=== PATIENT | female | born 1980 | race Caucasian/White ===

== ENCOUNTER 2018-04-23 20:35 | Emergency (ER) | payer MEDICAID ==
[~2018-04-23] VITALS: Ht 165.1 cm; Wt 61.3 kg
[~2018-04-23 20:35] MED LIST: FAMO-1 PO; ONDA4TAB59 PO; ONDA4TAB6 PO; ONDA8TAB9 PO; PROC25SU30 PO
[2018-04-23] MEDS ORDERED: ondansetron 4mg rapidly disintigrating tab PO STA (21:17)
[2018-04-23] MEDS ORDERED: normal saline 1000ML IV soln IVB ONE (21:55)
[2018-04-23] MEDS ORDERED: ondansetron/PF 4mg/2ml inj IV ONE ×2 (21:55→23:05)
[2018-04-23 22:04] LABS: BASOPHILS % (AUTO) 0.1 % (0-1); EOSINOPHILS % (AUTO) 0.2 % (0-6); HEMOGLOBIN 14.1 g/dl (12.0-16.0); LYMPHOCYTES # (AUTO) 2.1 X10'3 (1.1-4.8); LYMPHOCYTES % (AUTO) 19.6 % (21-51); MEAN CORPUSCULAR HEMOGLOBIN 29.7 PG (27.0-31.0); MEAN CORPUSCULAR HGB CONC 33.6 % (33.0-36.5); MEAN CORPUSCULAR VOLUME 88.4 FL (78-98); MEAN PLATELET VOLUME 7.3 FL (7.4-10.4); MONOCYTES # (AUTO) 0.7 X10'3 (0-0.9); MONOCYTES % (AUTO) 6.8 % (2-12); NEUTROPHILS % (AUTO) 73.3 % (42-75); PLATELET COUNT 209 X10'3 (140-440); RED BLOOD COUNT 4.75 X10'6 (4.20-5.60); RED CELL DISTRIBUTION WIDTH 13.5 % (11.5-14.5); WHITE BLOOD COUNT 10.9 X10'3 (4.5-11.0)
[2018-04-23 22:15] LABS: ALANINE AMINOTRANSFERASE 25 U/L (12-78); ALBUMIN 4.3 G/DL (3.4-5.0); ALBUMIN/GLOBULIN RATIO 1.2 (1.1-1.5); ALKALINE PHOSPHATASE 96 IU/L (46-116); ANION GAP 14 (8-16); ASPARTATE AMINO TRANSFERASE 20 U/L (10-37); BILIRUBIN,TOTAL 0.5 MG/DL (0.1-1.0); BLOOD UREA NITROGEN 14 MG/DL (7-18); BUN/CREATININE RATIO 18.9 (6.6-38.0); CALCIUM 9.8 MG/DL (8.5-10.1); CHLORIDE 101 MMOL/L (99-107); CREATININE 0.74 MG/DL (0.40-0.90); GLUCOSE 99 MG/DL (70-104); LIPASE 93 U/L (73-393); POTASSIUM 3.4 MMOL/L (3.5-5.1); SODIUM 140 MMOL/L (135-145); TOTAL CARBON DIOXIDE 24.9 MMOL/L (24-32); TOTAL PROTEIN 7.8 G/DL (6.4-8.2); eGFR 88 ML/MIN
[2018-04-23 22:16] LABS: PROTHROMBIN TIME 10.5 SECONDS (9.0-12.0)
[2018-04-23 23:03] VITALS: BP 112/70
[2018-04-23] MEDS ORDERED: ONDA4TAB9 SL (23:40)
[2018-04-24 00:37] LABS: CLARITY,URINE CLEAR (Clear); COLOR,URINE YELLOW (Yellow); GLUCOSE, URINE NEGATIVE (Neg); KETONES,URINE 15 mg/dl (Neg); LEUKOCYTE ESTERASE ,URINE NEGATIVE (Neg); NITRITES, URINE NEGATIVE (Neg); OCCULT BLOOD,URINE NEGATIVE (Neg); PH,URINE 6.5 (4.8-8.0); PROTEIN,URINE NEGATIVE (Neg)
[2018-04-24 00:39] LABS: UA COLLECTION TYPE NON-SPECIFIED; URINE HCG NEGATIVE (NEG)
== END 2018-04-23 23:51 | disposition home or self-care (01) ==
LOC: ER 20:35
DX: K30 Functional dyspepsia (principal); R11.10 Vomiting, unspecified; F12.90 Cannabis use, unspecified, uncomplicated; Z87.442 Personal history of urinary calculi; Z79.899 Other long term (current) drug therapy; Z88.8 Allergy status to other drugs, medicaments and biological substances; Z88.1 Allergy status to other antibiotic agents
CPT/HCPCS: 36415; 80053; 81003; 81025; 83690; 85025; 85610; 96361; 96374; 96376; 99284; J2405; J7030

== ENCOUNTER 2018-12-26 01:09 | Emergency (ER) | payer MEDICAID ==
[~2018-12-26] VITALS: Ht 165.1 cm; Wt 54.6 kg
[~2018-12-26 01:09] MED LIST changes: +ONDA8TAB6 PO
[2018-12-26 01:13] VITALS: BP 113/49
--- NOTE | 2018-12-26 01:50 | NUR ---
discussed pt's n/v with KELSI Souza;new orders received for Zofran ODT 8mg.
[2018-12-26] MEDS ORDERED: ondansetron 4mg rapidly disintigrating tab PO ONE (01:55)
[2018-12-26] MEDS ORDERED: proCHLORperazine 10 MG/2 ml inj IV ONE (02:50)
[2018-12-26] MEDS ORDERED: magnesium 2GM in 50ml NS 50 ML IV ONE (03:00)
[2018-12-26] MEDS ORDERED: ESOMEPRAZOLE 40 MG VIAL IV ONE (03:00)
[2018-12-26] MEDS ORDERED: normal saline 1000ML IV soln IVB ONE (03:00)
[2018-12-26] MEDS ORDERED: D5-1/2NS w/20 mEq potassium per 1000ml IV ONE (03:00)
[2018-12-26] MEDS ORDERED: ONDA4TAB6 PO (03:00)
[2018-12-26] MEDS ORDERED: pantoprazole 40 MG vial IV ONE (03:00)
[2018-12-26] MEDS ORDERED: ESOM20CA PO (03:00)
== END 2018-12-26 03:29 | disposition home or self-care (01) ==
LOC: ER 01:09
DX: G43.A0 Cyclical vomiting, in migraine, not intractable (principal); F12.90 Cannabis use, unspecified, uncomplicated; Z87.442 Personal history of urinary calculi; Z98.890 Other specified postprocedural states; Z88.1 Allergy status to other antibiotic agents; Z88.6 Allergy status to analgesic agent; Z88.8 Allergy status to other drugs, medicaments and biological substances; Z79.899 Other long term (current) drug therapy
CPT/HCPCS: 96374; 99283; J0780; J2405; J3475; J3480

== ENCOUNTER 2019-01-02 06:04 | Emergency (ER) | payer MEDICAID ==
[~2019-01-02] VITALS: Ht 165.1 cm; Wt 56.8 kg
[~2019-01-02 06:04] MED LIST changes: +ESOM20CA PO
[2019-01-02 06:29] LABS: URINE HCG NEGATIVE (NEG)
[2019-01-02 06:30] LABS: CLARITY,URINE CLEAR (Clear); COLOR,URINE YELLOW (Yellow); GLUCOSE, URINE NEGATIVE (Neg); KETONES,URINE NEGATIVE (Neg); LEUKOCYTE ESTERASE ,URINE NEGATIVE (Neg); NITRITES, URINE NEGATIVE (Neg); OCCULT BLOOD,URINE NEGATIVE (Neg); PROTEIN,URINE TRACE mg/dl (Neg); UROBILINOGEN,URINE 0.2 E.U/dL (0.2-1.0)
[2019-01-02 06:35] LABS: UA COLLECTION TYPE CLN CATCH MIDSTREAM
[2019-01-02] MEDS ORDERED: ondansetron/PF 4mg/2ml inj IV ONE (06:35)
[2019-01-02] MEDS ORDERED: normal saline 1000ML IV soln IVB ONE (06:35)
[2019-01-02 06:36] LABS: BACTERIA,URINE 1+ /HPF (Neg); MUCUS STRANDS FEW /LPF (Neg); RBC,URINE NONE SEEN /HPF (0-2); SQUAMOUS EPITHELIAL CELL,UR MANY /LPF (FEW); WBC,URINE NONE SEEN /HPF (0-4)
[2019-01-02 06:41] LABS: BASOPHILS % (AUTO) 0.3 % (0-1); EOSINOPHILS % (AUTO) 0.4 % (0-6); HEMATOCRIT 41.2 % (35.0-45.0); HEMOGLOBIN 13.8 g/dl (12.0-16.0); LYMPHOCYTES # (AUTO) 1.6 X10'3 (1.1-4.8); MEAN CORPUSCULAR HEMOGLOBIN 29.8 PG (27.0-31.0); MEAN CORPUSCULAR HGB CONC 33.5 g/dL (33.0-36.5); MEAN CORPUSCULAR VOLUME 88.9 FL (78-98); MEAN PLATELET VOLUME 7.5 FL (7.4-10.4); MONOCYTES # (AUTO) 0.5 X10'3 (0-0.9); MONOCYTES % (AUTO) 6.5 % (2-12); NEUTROPHILS # (AUTO) 5.4 X10'3 (1.8-7.7); NEUTROPHILS % (AUTO) 71.8 % (42-75); PLATELET COUNT 188 X10'3 (140-440); RED BLOOD COUNT 4.64 X10'6 (4.20-5.60); RED CELL DISTRIBUTION WIDTH 13.4 % (11.5-14.5); WHITE BLOOD COUNT 7.5 X10'3 (4.5-11.0)
[2019-01-02] MEDS ORDERED: haloperidol lactate 5mg/ml inj IM ONE (06:55)
[2019-01-02 06:58] LABS: ALANINE AMINOTRANSFERASE 21 U/L (12-78); ALBUMIN/GLOBULIN RATIO 1.3 (1.1-1.5); ALKALINE PHOSPHATASE 54 IU/L (46-116); ANION GAP 9 (8-16); ASPARTATE AMINO TRANSFERASE 14 U/L (10-37); BILIRUBIN,TOTAL 0.3 MG/DL (0.1-1.0); BLOOD UREA NITROGEN 12 MG/DL (7-18); BUN/CREATININE RATIO 16.2 (6.6-38.0); CALCIUM 8.5 MG/DL (8.5-10.1); CHLORIDE 106 MMOL/L (99-107); CREATININE 0.74 MG/DL (0.40-0.90); GLUCOSE 131 MG/DL (70-104); LIPASE 111 U/L (73-393); POTASSIUM 3.4 MMOL/L (3.5-5.1); SODIUM 141 MMOL/L (135-145); TOTAL CARBON DIOXIDE 25.7 MMOL/L (24-32); TOTAL PROTEIN 7.2 G/DL (6.4-8.2); eGFR 88 ML/MIN
[2019-01-02] MEDS ORDERED: ONDA4TAB12 PO (07:39)
[2019-01-02 07:50] VITALS: BP 129/67
== END 2019-01-02 07:52 | disposition home or self-care (01) ==
LOC: ER 06:04
DX: G43.A0 Cyclical vomiting, in migraine, not intractable (principal); F12.90 Cannabis use, unspecified, uncomplicated; F17.200 Nicotine dependence, unspecified, uncomplicated; Z87.442 Personal history of urinary calculi; Z88.1 Allergy status to other antibiotic agents; Z79.899 Other long term (current) drug therapy
CPT/HCPCS: 36415; 80053; 81001; 81025; 83690; 85025; 85610; 96372; 96374; 99284; J1630; J2405; J7030

== ENCOUNTER 2019-01-02 19:24 | Emergency (ER) | payer MEDICAID ==
[~2019-01-02] VITALS: Ht 165.1 cm; Wt 56.0 kg
[~2019-01-02 19:24] MED LIST changes: +ONDA4TAB12 PO
[2019-01-02 19:35] VITALS: BP 129/70
[2019-01-02] MEDS ORDERED: ondansetron 4mg rapidly disintigrating tab PO ONE (20:50)
[2019-01-02] MEDS ORDERED: diphenhydrAMINE 25mg capsule PO ONE (20:50)
== END 2019-01-02 21:31 | disposition home or self-care (01) ==
LOC: ER 19:25
DX: R11.2 Nausea with vomiting, unspecified (principal); F12.90 Cannabis use, unspecified, uncomplicated; Z87.442 Personal history of urinary calculi; Z98.890 Other specified postprocedural states; Z79.899 Other long term (current) drug therapy; Z88.8 Allergy status to other drugs, medicaments and biological substances; Z88.1 Allergy status to other antibiotic agents
CPT/HCPCS: 99283; J2405; Q0163

== ENCOUNTER 2019-01-15 06:55 | Emergency (ER) | payer MEDICAID ==
[~2019-01-15] VITALS: Ht 165.1 cm; Wt 56.8 kg
[2019-01-15] MEDS ORDERED: haloperidol lactate 5mg/ml inj IM ONE (07:10)
[2019-01-15] MEDS ORDERED: morphine 4 MG/ML inj SYRINge IV PRN (07:10)
[2019-01-15] MEDS ORDERED: normal saline 1000ML IV soln IVB ONE (07:10)
[2019-01-15] MEDS ORDERED: proCHLORperazine 10 MG/2 ml inj IV ONE (07:40)
[2019-01-15] MEDS ORDERED: ondansetron/PF 4mg/2ml inj IV STA (07:44)
[2019-01-15] MEDS ORDERED: ondansetron/PF 4mg/2ml inj IV ONE (08:00)
[2019-01-15 08:05] LABS: BASOPHILS % (AUTO) 0.3 % (0-1); EOSINOPHILS % (AUTO) 0 % (0-6); HEMATOCRIT 42.3 % (35.0-45.0); HEMOGLOBIN 14.3 g/dl (12.0-16.0); LYMPHOCYTES # (AUTO) 1.4 X10'3 (1.1-4.8); LYMPHOCYTES % (AUTO) 13.5 % (21-51); MEAN CORPUSCULAR HEMOGLOBIN 29.8 PG (27.0-31.0); MEAN CORPUSCULAR HGB CONC 33.8 g/dL (33.0-36.5); MEAN CORPUSCULAR VOLUME 88.3 FL (78-98); MONOCYTES # (AUTO) 0.6 X10'3 (0-0.9); MONOCYTES % (AUTO) 5.5 % (2-12); NEUTROPHILS % (AUTO) 80.7 % (42-75); PLATELET COUNT 204 X10'3 (140-440); RED BLOOD COUNT 4.79 X10'6 (4.20-5.60); RED CELL DISTRIBUTION WIDTH 13.8 % (11.5-14.5)
[2019-01-15 08:11] LABS: ALANINE AMINOTRANSFERASE 19 U/L (12-78); ALBUMIN 4.2 G/DL (3.4-5.0); ALBUMIN/GLOBULIN RATIO 1.3 (1.1-1.5); ALKALINE PHOSPHATASE 59 IU/L (46-116); ANION GAP 9 (8-16); ASPARTATE AMINO TRANSFERASE 15 U/L (10-37); BILIRUBIN,TOTAL 0.4 MG/DL (0.1-1.0); BLOOD UREA NITROGEN 10 MG/DL (7-18); BUN/CREATININE RATIO 14.1 (6.6-38.0); CHLORIDE 108 MMOL/L (99-107); CREATININE 0.71 MG/DL (0.40-0.90); GLUCOSE 145 MG/DL (70-104); LIPASE 116 U/L (73-393); POTASSIUM 3.5 MMOL/L (3.5-5.1); SODIUM 143 MMOL/L (135-145); TOTAL CARBON DIOXIDE 26.2 MMOL/L (24-32); TOTAL PROTEIN 7.4 G/DL (6.4-8.2); eGFR > 90 ML/MIN
[2019-01-15 08:24] LABS: CLARITY,URINE CLOUDY (Clear); COLOR,URINE YELLOW (Yellow); GLUCOSE, URINE NEGATIVE (Neg); KETONES,URINE TRACE mg/dl (Neg); LEUKOCYTE ESTERASE ,URINE NEGATIVE (Neg); NITRITES, URINE NEGATIVE (Neg); OCCULT BLOOD,URINE NEGATIVE (Neg); PROTEIN,URINE TRACE mg/dl (Neg); UROBILINOGEN,URINE 0.2 E.U/dL (0.2-1.0)
[2019-01-15 08:26] LABS: UA COLLECTION TYPE CLN CATCH MIDSTREAM; URINE HCG NEGATIVE (NEG)
[2019-01-15 08:39] LABS: BACTERIA,URINE 3+ /HPF (Neg); MUCUS STRANDS MANY /LPF (Neg); RBC,URINE NONE SEEN /HPF (0-2); SQUAMOUS EPITHELIAL CELL,UR MANY /LPF (FEW); WBC,URINE 0-4 /HPF (0-4)
[2019-01-15] MEDS ORDERED: diphenhydrAMINE 50 mg/ml inj IV ONE (08:40)
[2019-01-15] MEDS ORDERED: metoclopramide 5 mg/ml inj IV ONE (08:40)
[2019-01-15 09:09] VITALS: BP 130/84
== END 2019-01-15 09:12 | disposition home or self-care (01) ==
LOC: ER 06:56
DX: R11.2 Nausea with vomiting, unspecified (principal); F12.90 Cannabis use, unspecified, uncomplicated; F17.200 Nicotine dependence, unspecified, uncomplicated; Z88.1 Allergy status to other antibiotic agents; Z88.8 Allergy status to other drugs, medicaments and biological substances; Z79.899 Other long term (current) drug therapy; Z87.442 Personal history of urinary calculi; Z87.440 Personal history of urinary (tract) infections; Z98.82 Breast implant status
CPT/HCPCS: 36415; 80053; 81001; 81025; 83690; 85025; 96361; 96374; 96375; 99283; J1200; J2405; J2765; J7030

== ENCOUNTER 2019-02-10 03:23 | Emergency (ER) | payer MEDICAID ==
[~2019-02-10] VITALS: Ht 165.1 cm; Wt 125.0 kg
[2019-02-10 03:37] VITALS: BP 115/63
[2019-02-10] MEDS ORDERED: ondansetron/PF 4mg/2ml inj IV ONE (03:45)
[2019-02-10] MEDS ORDERED: metoclopramide 5 mg/ml inj IV ONE (03:45)
[2019-02-10] MEDS ORDERED: diphenhydrAMINE 50 mg/ml inj IV ONE (03:45)
[2019-02-10] MEDS ORDERED: normal saline 1000ml 1,000 ML IV ONE (03:45)
[2019-02-10] MEDS ORDERED: ONDA8TAB6 PO (03:54)
[2019-02-10] MEDS ORDERED: famotidine/PF 10 mg/ml inj IV ONE (03:55)
[2019-02-10] MEDS ORDERED: mag hydrox/Alum hydrox/simeth 30ml oral suspension PO ONE (03:55)
== END 2019-02-10 04:36 | disposition home or self-care (01) ==
LOC: ER 03:23
DX: G43.A0 Cyclical vomiting, in migraine, not intractable (principal); R19.7 Diarrhea, unspecified; F12.90 Cannabis use, unspecified, uncomplicated; Z87.442 Personal history of urinary calculi; Z98.890 Other specified postprocedural states; Z88.8 Allergy status to other drugs, medicaments and biological substances; Z88.6 Allergy status to analgesic agent; Z88.1 Allergy status to other antibiotic agents; Z79.899 Other long term (current) drug therapy
CPT/HCPCS: 96374; 96375; 99283; J1200; J2405; J2765; J3490; J7030

== ENCOUNTER 2019-02-10 05:41 | Emergency (ER) | payer MEDICAID ==
[~2019-02-10] VITALS: Ht 165.1 cm; Wt 56.8 kg
[2019-02-10] MEDS ORDERED: metoclopramide 5 mg/ml inj IV ONE (06:35)
[2019-02-10] MEDS ORDERED: normal saline 1000ML IV soln IVB ONE (06:35)
[2019-02-10 07:03] VITALS: BP 128/70
== END 2019-02-10 07:34 | disposition home or self-care (01) ==
LOC: ER 05:43
DX: G43.A0 Cyclical vomiting, in migraine, not intractable (principal); F12.90 Cannabis use, unspecified, uncomplicated; Z87.442 Personal history of urinary calculi; Z88.1 Allergy status to other antibiotic agents; Z88.5 Allergy status to narcotic agent; Z79.899 Other long term (current) drug therapy
CPT/HCPCS: 96374; 99283; J2765; J7030; 96361

== ENCOUNTER 2019-02-13 03:30 | Emergency (ER) | payer MEDICAID ==
[~2019-02-13] VITALS: Ht 165.1 cm; Wt 56.8 kg
[2019-02-13 03:37] VITALS: BP 128/72
[2019-02-13] MEDS ORDERED: normal saline 1000ML IV soln IVB ONE (03:55)
[2019-02-13] MEDS ORDERED: metoclopramide 5 mg/ml inj IV ONE (03:55)
[2019-02-13] MEDS ORDERED: ondansetron/PF 4mg/2ml inj IV ONE (03:55)
[2019-02-13] MEDS ORDERED: ONDA4TAB6 PO (04:50)
== END 2019-02-13 05:03 | disposition home or self-care (01) ==
LOC: ER 03:31
DX: G43.A0 Cyclical vomiting, in migraine, not intractable (principal); F12.90 Cannabis use, unspecified, uncomplicated; Z87.440 Personal history of urinary (tract) infections; Z87.442 Personal history of urinary calculi; Z88.1 Allergy status to other antibiotic agents; Z88.6 Allergy status to analgesic agent; Z79.899 Other long term (current) drug therapy
CPT/HCPCS: 96374; 96375; 99283; J2405; J2765; J7030

== ENCOUNTER 2019-02-26 02:28 | Emergency (ER) | payer MEDICAID ==
[~2019-02-26] VITALS: Ht 165.1 cm; Wt 56.8 kg
[2019-02-26] MEDS ORDERED: ondansetron/PF 4mg/2ml inj IV ONE (03:30)
[2019-02-26] MEDS ORDERED: metoclopramide 5 mg/ml inj IV ONE (03:30)
[2019-02-26] MEDS ORDERED: normal saline 1000ml 1,000 ML IV ONE (03:30)
--- NOTE | 2019-02-26 03:58 | NUR ---
Patient walking outside of room, moaning, saying that she is going to throw up, that "she can't take it anymore" and that her "body is shutting down" Patients vital are stable, no retching or vomiting at this time. Patient admits to "taking one hit" of marijuana tonight. Medications administered per MD order.
[2019-02-26 04:15] VITALS: BP 128/68
[2019-02-26] MEDS ORDERED: ONDA8TAB6 PO (05:28)
[2019-02-26] MEDS ORDERED: PROM25SU46 RC (05:28)
== END 2019-02-26 04:18 | disposition home or self-care (01) ==
LOC: ER 02:28
DX: G43.A0 Cyclical vomiting, in migraine, not intractable (principal); R10.84 Generalized abdominal pain; F12.90 Cannabis use, unspecified, uncomplicated; Z87.442 Personal history of urinary calculi; Z98.890 Other specified postprocedural states; Z88.6 Allergy status to analgesic agent; Z88.1 Allergy status to other antibiotic agents; Z88.8 Allergy status to other drugs, medicaments and biological substances; Z79.899 Other long term (current) drug therapy
CPT/HCPCS: 96361; 96374; 96375; 99283; J2405; J2765; J7030

== ENCOUNTER 2019-02-26 04:49 | Emergency (ER) | payer MEDICAID ==
[~2019-02-26] VITALS: Ht 165.1 cm; Wt 56.8 kg
[2019-02-26 04:59] VITALS: BP 163/109
--- NOTE | 2019-02-26 05:05 | NUR ---
REFUSES EDUCATION ABOUT MARIJUANA
--- NOTE | 2019-02-26 05:07 | NUR ---
pt states she is working on getting a psychiatrist but something about insurance. She says she will not take haldol or ativan, that makes her anxious. She is prancing around the room and will not stop moving. She keeps saying "help" "get me the doctor like right now" I asked her about anxiety and she said "this isn't anxiety" I stated "but look how you are, you will not stop moving and you are anxious." She said "No,....its not that, get me help."
[2019-02-26] MEDS ORDERED: diphenhydrAMINE 25mg capsule PO ONE (05:20)
[2019-02-26] MEDS ORDERED: proCHLORperazine 10 MG/2 ml inj IM ONE (05:20)
[2019-02-26] MEDS ORDERED: proMETHazine 25mg rectal suppository RC ONE (05:25)
[2019-02-26] MEDS ORDERED: PROM25SU46 RC (05:28)
[2019-02-26] MEDS ORDERED: ONDA8TAB6 PO (05:28)
--- NOTE | 2019-02-26 05:30 | NUR ---
pt seen in the hallway and she said she was leaving.
== END 2019-02-26 05:32 | disposition left against medical advice (07) ==
LOC: ER 04:50
DX: G43.A0 Cyclical vomiting, in migraine, not intractable (principal); R10.84 Generalized abdominal pain; F12.90 Cannabis use, unspecified, uncomplicated; Z87.442 Personal history of urinary calculi; Z98.890 Other specified postprocedural states; Z88.1 Allergy status to other antibiotic agents; Z88.6 Allergy status to analgesic agent; Z88.8 Allergy status to other drugs, medicaments and biological substances; Z79.899 Other long term (current) drug therapy
CPT/HCPCS: 99283

== ENCOUNTER 2019-02-26 23:00 | Emergency (ER) | payer MEDICAID ==
[~2019-02-26] VITALS: Ht 165.1 cm; Wt 56.8 kg
[~2019-02-26 23:00] MED LIST changes: +PROM25SU46 RC
--- NOTE | 2019-02-27 01:17 | NUR ---
PT REFUSES TO WEAR VS MONITORING EQUIPMENT AND STATES "I JUST NEED THIS OFF OF ME. THE SOONER WE GET THROUGH THIS THE BETTER. I'VE BEEN HERE 3 TIMES TODAY AND A FEW TIMES LAST NIGHT."
--- NOTE | 2019-02-27 01:32 | NUR ---
PT REQUESTING ICE CHIPS AND FREQUENTLY UP IN HALLS GOING TO THE BATHROOM. ASKED PT TO RETURN BACK TO ROOM;PT DID.
--- NOTE | 2019-02-27 01:35 | NUR ---
PT CAME UP TO NURSES STATION AND ASKED "CAN I GET MY IV STARTED? LETS GET THIS SHOW ON THE ROAD." PT INFORMED THERE ARE NO ORDERS FOR AN IV AND WE HAVE TO WAIT UNTIL THE DOCTOR ASSESSES HER AND WRITES ORDERS. PT THEN ASKED TO RETURN TO ROOM. PT DID.
[2019-02-27] MEDS ORDERED: proMETHazine 25mg rectal suppository RC ONE (02:20)
[2019-02-27] MEDS ORDERED: diphenhydrAMINE 50 mg/ml inj IM ONE (02:20)
[2019-02-27] MEDS ORDERED: proCHLORperazine 10 MG/2 ml inj IM ONE (02:20)
[2019-02-27 02:30] VITALS: BP 126/74
== END 2019-02-27 02:51 | disposition home or self-care (01) ==
LOC: ER 23:00
DX: G43.A0 Cyclical vomiting, in migraine, not intractable (principal); F12.90 Cannabis use, unspecified, uncomplicated; Z87.442 Personal history of urinary calculi; Z98.890 Other specified postprocedural states; Z88.1 Allergy status to other antibiotic agents; Z88.6 Allergy status to analgesic agent; Z88.8 Allergy status to other drugs, medicaments and biological substances; Z79.899 Other long term (current) drug therapy
CPT/HCPCS: 96372; 99283; J0780; J1200

== ENCOUNTER 2019-03-25 04:24 | Emergency (ER) | payer MEDICAID ==
[~2019-03-25] VITALS: Ht 165.1 cm; Wt 56.8 kg
[2019-03-25] MEDS ORDERED: proMETHazine 25mg rectal suppository RC ONE (05:20)
[2019-03-25] MEDS ORDERED: proCHLORperazine 10 MG/2 ml inj IM ONE (05:20)
[2019-03-25] MEDS ORDERED: diphenhydrAMINE 50 mg/ml inj IM ONE (05:20)
--- NOTE | 2019-03-25 05:24 | NUR ---
Pt continues to moan and rock. Continues to deny any abdominal pain and has no episodes of emesis since arrival. Will continue to monitor.
[2019-03-25 05:54] VITALS: BP 101/66
== END 2019-03-25 05:50 | disposition home or self-care (01) ==
LOC: ER 04:25
DX: R11.10 Vomiting, unspecified (principal); F41.9 Anxiety disorder, unspecified; F12.90 Cannabis use, unspecified, uncomplicated; Z87.442 Personal history of urinary calculi; Z98.890 Other specified postprocedural states; Z88.1 Allergy status to other antibiotic agents; Z88.6 Allergy status to analgesic agent; Z88.8 Allergy status to other drugs, medicaments and biological substances; Z79.899 Other long term (current) drug therapy
CPT/HCPCS: 96372; 99283; J0780; J1200

== ENCOUNTER 2019-04-18 01:07 | Emergency (ER) | payer MEDICAID ==
[~2019-04-18] VITALS: Ht 165.1 cm; Wt 46.2 kg
[2019-04-18 01:03] LABS: ALANINE AMINOTRANSFERASE 10 U/L (12-78); ALBUMIN 3.9 G/DL (3.4-5.0); ALBUMIN/GLOBULIN RATIO 1.1 (1.1-1.5); ALKALINE PHOSPHATASE 68 IU/L (46-116); ANION GAP 12 (8-16); ASPARTATE AMINO TRANSFERASE 12 U/L (10-37); BILIRUBIN,TOTAL 1.1 MG/DL (0.1-1.0); BLOOD UREA NITROGEN 11 MG/DL (7-18); BUN/CREATININE RATIO 14.7 (6.6-38.0); CALCIUM 9.1 MG/DL (8.5-10.1); CHLORIDE 107 MMOL/L (99-107); CREATININE 0.75 MG/DL (0.40-0.90); GLUCOSE 133 MG/DL (70-104); LIPASE 69 U/L (73-393); MAGNESIUM 1.7 MG/DL (1.5-2.4); POTASSIUM 3.7 MMOL/L (3.5-5.1); SODIUM 140 MMOL/L (135-145); TOTAL CARBON DIOXIDE 21.4 MMOL/L (24-32); TOTAL PROTEIN 7.3 G/DL (6.4-8.2); eGFR 86 ML/MIN
[~2019-04-18 01:07] MED LIST changes: +magnesium 2GM in 50ml NS 50 ML IV ONE
[2019-04-18] MEDS ORDERED: metoclopramide 5 mg/ml inj IV ONE ×2 (01:20→02:20)
[2019-04-18] MEDS ORDERED: D5-1/2NS w/20 mEq potassium per 1000ml IV ONE (01:25)
[2019-04-18] MEDS ORDERED: normal saline 1000ML IV soln IVB ONE (01:25)
[2019-04-18] MEDS ORDERED: ketorolac tromethamine 15mg/ml inj. IV ONE (01:45)
--- NOTE | 2019-04-18 01:50 | NUR ---
daylight savings time change occurred.
[2019-04-18 01:58] LABS: BASOPHILS % (AUTO) 0.3 % (0-1); EOSINOPHILS % (AUTO) 0 % (0-6); HEMATOCRIT 40.2 % (35.0-45.0); LYMPHOCYTES # (AUTO) 1.9 X10'3 (1.1-4.8); LYMPHOCYTES % (AUTO) 12.1 % (21-51); MEAN CORPUSCULAR HEMOGLOBIN 30.3 PG (27.0-31.0); MEAN CORPUSCULAR HGB CONC 34.9 g/dL (33.0-36.5); MEAN CORPUSCULAR VOLUME 86.7 FL (78-98); MEAN PLATELET VOLUME 7.8 FL (7.4-10.4); MONOCYTES # (AUTO) 0.9 X10'3 (0-0.9); MONOCYTES % (AUTO) 5.5 % (2-12); NEUTROPHILS % (AUTO) 82.1 % (42-75); PLATELET COUNT 224 X10'3 (140-440); RED BLOOD COUNT 4.63 X10'6 (4.20-5.60); RED CELL DISTRIBUTION WIDTH 13.6 % (11.5-14.5); WHITE BLOOD COUNT 15.8 X10'3 (4.5-11.0)
[2019-04-18] MEDS ORDERED: proMETHazine 25mg rectal suppository RC ONE (02:25)
--- NOTE | 2019-04-18 03:25 | NUR ---
DISCUSSED PT'S CONTINUED EMESIS WITH JUDD SALAS. NEW ORDER FOR APREPITANT.
[2019-04-18] MEDS ORDERED: aprepitant 40mg capsule PO ONE (03:30)
--- NOTE | 2019-04-18 03:45 | NUR ---
MED ORDERED CANCELLED.
[2019-04-18] MEDS ORDERED: OLANZapine 5mg rapidly disint. tablet PO ONE (03:55)
[2019-04-18] MEDS ORDERED: PROC25SU31 RC (03:58)
[2019-04-18] MEDS ORDERED: ONDA4TAB6 PO (03:58)
[2019-04-18] MEDS ORDERED: OLAN2.5T3 PO (03:58)
[2019-04-18 04:31] VITALS: BP 123/69
== END 2019-04-18 04:34 | disposition home or self-care (01) ==
LOC: ER 01:08
DX: G43.A0 Cyclical vomiting, in migraine, not intractable (principal); F12.90 Cannabis use, unspecified, uncomplicated; Z87.442 Personal history of urinary calculi; Z98.890 Other specified postprocedural states; Z88.1 Allergy status to other antibiotic agents; Z88.6 Allergy status to analgesic agent; Z88.8 Allergy status to other drugs, medicaments and biological substances; Z79.899 Other long term (current) drug therapy
CPT/HCPCS: 36415; 80053; 83690; 83735; 85025; 93005; 96365; 96366; 96368; 96375; 96376; 99284; J1885; J2765; J3475; J3480; J7030; J8501

== ENCOUNTER 2019-04-19 03:11 | Emergency (ER) | payer MEDICAID ==
[~2019-04-19 03:11] MED LIST changes: +OLAN2.5T3 PO; +PROC25SU31 RC; -magnesium 2GM in 50ml NS 50 ML IV ONE
== END 2019-04-19 13:13 | disposition left against medical advice (07) ==
LOC: ER 03:12
DX: R11.10 Vomiting, unspecified (principal); Z53.21 Procedure and treatment not carried out due to patient leaving prior to being seen by health care provider

== ENCOUNTER 2019-04-19 13:03 | Emergency (ER) | payer MEDICAID ==
[~2019-04-19] VITALS: Ht 165.1 cm; Wt 57.8 kg
[2019-04-19 13:07] VITALS: BP 134/68
== END 2019-04-19 15:41 | disposition left against medical advice (07) ==
LOC: ER 13:04
DX: R11.10 Vomiting, unspecified (principal); Z53.21 Procedure and treatment not carried out due to patient leaving prior to being seen by health care provider

== ENCOUNTER 2019-07-25 21:54 | Emergency (ER) | payer MEDICAID ==
[~2019-07-25] VITALS: Ht 165.1 cm; Wt 56.8 kg
[~2019-07-25 21:54] MED LIST changes: -PROC25SU31 RC
[2019-07-25] MEDS ORDERED: normal saline 1000ML IV soln IVB ONE (22:30)
[2019-07-25] MEDS ORDERED: ondansetron/PF 4mg/2ml inj IV ONE ×2 (22:30)
[2019-07-25 22:33] LABS: BASOPHILS # (AUTO) 0.1 X10'3 (0-0.2); BASOPHILS % (AUTO) 0.5 % (0-1); EOSINOPHILS # (AUTO) 0.1 X10'3 (0-0.9); EOSINOPHILS % (AUTO) 0.6 % (0-6); HEMATOCRIT 40.1 % (35.0-45.0); HEMOGLOBIN 13.8 g/dl (12.0-16.0); LYMPHOCYTES # (AUTO) 3.5 X10'3 (1.1-4.8); LYMPHOCYTES % (AUTO) 30.3 % (21-51); MEAN CORPUSCULAR HEMOGLOBIN 29.8 PG (27.0-31.0); MEAN CORPUSCULAR HGB CONC 34.5 g/dL (33.0-36.5); MEAN CORPUSCULAR VOLUME 86.5 FL (78-98); MEAN PLATELET VOLUME 7.4 FL (7.4-10.4); MONOCYTES % (AUTO) 8.6 % (2-12); PLATELET COUNT 216 X10'3 (140-440); RED BLOOD COUNT 4.64 X10'6 (4.20-5.60); RED CELL DISTRIBUTION WIDTH 13.2 % (11.5-14.5); WHITE BLOOD COUNT 11.6 X10'3 (4.5-11.0)
[2019-07-25 22:43] LABS: ALANINE AMINOTRANSFERASE 8 U/L (12-78); ALBUMIN 4.3 G/DL (3.4-5.0); ALBUMIN/GLOBULIN RATIO 1.3 (1.1-1.5); ALKALINE PHOSPHATASE 73 IU/L (46-116); ANION GAP 9 (8-16); ASPARTATE AMINO TRANSFERASE 13 U/L (10-37); BILIRUBIN,TOTAL 0.5 MG/DL (0.1-1.0); BLOOD UREA NITROGEN 10 MG/DL (7-18); CALCIUM 9.7 MG/DL (8.5-10.1); CHLORIDE 105 MMOL/L (99-107); CREATININE 0.77 MG/DL (0.40-0.90); GLUCOSE 114 MG/DL (70-104); LIPASE 108 U/L (73-393); POTASSIUM 3.6 MMOL/L (3.5-5.1); SODIUM 139 MMOL/L (135-145); TOTAL CARBON DIOXIDE 24.9 MMOL/L (24-32); TOTAL PROTEIN 7.5 G/DL (6.4-8.2); eGFR 83 ML/MIN
[2019-07-25] MEDS ORDERED: proCHLORperazine 10 MG/2 ml inj IV ONE (23:00)
[2019-07-25] MEDS ORDERED: levetiracetam 250mg tablet PO ONE (23:00)
[2019-07-25] MEDS ORDERED: ONDA8TAB6 PO (23:39)
[2019-07-25 23:46] VITALS: BP 131/82
== END 2019-07-25 23:48 | disposition home or self-care (01) ==
LOC: ER 21:55
DX: R11.15 Cyclical vomiting syndrome unrelated to migraine (principal); R11.2 Nausea with vomiting, unspecified; F12.90 Cannabis use, unspecified, uncomplicated; Z87.442 Personal history of urinary calculi; Z88.8 Allergy status to other drugs, medicaments and biological substances; Z88.6 Allergy status to analgesic agent; Z79.899 Other long term (current) drug therapy
CPT/HCPCS: 36415; 80053; 83690; 85025; 96361; 96374; 96375; 99283; J0780; J2405; J7030

== ENCOUNTER 2019-09-15 07:34 | Emergency (ER) | payer MEDICAID ==
[~2019-09-15] VITALS: Ht 160 cm; Wt 45.0 kg
[2019-09-15 07:36] VITALS: BP 118/76
[2019-09-15] MEDS ORDERED: diphenhydrAMINE 50 mg/ml inj IV ONE (08:00)
[2019-09-15] MEDS ORDERED: normal saline 1000ML IV soln IVB ONE (08:00)
[2019-09-15] MEDS ORDERED: metoclopramide 5 mg/ml inj IV ONE ×2 (08:00→08:10)
[2019-09-15 08:04] LABS: BASOPHILS # (AUTO) 0.1 X10'3 (0-0.2); BASOPHILS % (AUTO) 0.6 % (0-1); EOSINOPHILS % (AUTO) 0.4 % (0-6); HEMATOCRIT 42.8 % (35.0-45.0); HEMOGLOBIN 14.3 g/dl (12.0-16.0); LYMPHOCYTES # (AUTO) 1.8 X10'3 (1.1-4.8); LYMPHOCYTES % (AUTO) 13.9 % (21-51); MEAN CORPUSCULAR HEMOGLOBIN 29.5 PG (27.0-31.0); MEAN CORPUSCULAR HGB CONC 33.4 g/dL (33.0-36.5); MEAN CORPUSCULAR VOLUME 88.4 FL (78-98); MEAN PLATELET VOLUME 7.3 FL (7.4-10.4); MONOCYTES # (AUTO) 1.1 X10'3 (0-0.9); MONOCYTES % (AUTO) 8.6 % (2-12); NEUTROPHILS # (AUTO) 9.8 X10'3 (1.8-7.7); NEUTROPHILS % (AUTO) 76.5 % (42-75); PLATELET COUNT 227 X10'3 (140-440); RED BLOOD COUNT 4.84 X10'6 (4.20-5.60); RED CELL DISTRIBUTION WIDTH 13.5 % (11.5-14.5); WHITE BLOOD COUNT 12.8 X10'3 (4.5-11.0)
[2019-09-15 08:17] LABS: ALANINE AMINOTRANSFERASE 23 U/L (12-78); ALBUMIN 4.1 G/DL (3.4-5.0); ALBUMIN/GLOBULIN RATIO 1.2 (1.1-1.5); ALKALINE PHOSPHATASE 75 IU/L (46-116); ANION GAP 9 (8-16); ASPARTATE AMINO TRANSFERASE 19 U/L (10-37); BILIRUBIN,TOTAL 0.7 MG/DL (0.1-1.0); BLOOD UREA NITROGEN 8 MG/DL (7-18); BUN/CREATININE RATIO 10.7 (6.6-38.0); CALCIUM 9.1 MG/DL (8.5-10.1); CHLORIDE 106 MMOL/L (99-107); CREATININE 0.75 MG/DL (0.40-0.90); GLUCOSE 136 MG/DL (70-104); LIPASE 69 U/L (73-393); POTASSIUM 3.6 MMOL/L (3.5-5.1); SODIUM 139 MMOL/L (135-145); TOTAL CARBON DIOXIDE 24.4 MMOL/L (24-32); TOTAL PROTEIN 7.4 G/DL (6.4-8.2); eGFR 86 ML/MIN
--- NOTE | 2019-09-15 08:47 | NUR ---
PT STATES SHE WANTS TO GO HOME AND IS ON HER CELL PHONE CALLING A CAB WHILE NURSE IS IN ROOM. MD NOTIFIED AND D/C INSTRUCTIONS GIVEN. PT REFUSED TO SIGN D/C INSTRUCTIONS.
[2019-09-16] MEDS ORDERED: PROM25SU46 RC (23:56)
[2019-09-16] MEDS ORDERED: ONDA8TAB6 PO (23:56)
== END 2019-09-15 08:51 | disposition home or self-care (01) ==
LOC: ER 07:34
DX: R11.15 Cyclical vomiting syndrome unrelated to migraine (principal); R42 Dizziness and giddiness; F12.90 Cannabis use, unspecified, uncomplicated; Z87.442 Personal history of urinary calculi; Z87.440 Personal history of urinary (tract) infections; Z88.1 Allergy status to other antibiotic agents; Z88.8 Allergy status to other drugs, medicaments and biological substances; Z79.899 Other long term (current) drug therapy
CPT/HCPCS: 36415; 80053; 83690; 85025; 96361; 96374; 96375; 99284; J1200; J2765; J7030

== ENCOUNTER 2019-09-16 23:39 | Emergency (ER) | payer MEDICAID ==
[~2019-09-16] VITALS: Ht 165.1 cm; Wt 39.4 kg
[2019-09-16 23:44] VITALS: BP 114/71
[2019-09-16] MEDS ORDERED: normal saline 1000ml 1,000 ML IV ONE (23:55)
[2019-09-16] MEDS ORDERED: ondansetron/PF 4mg/2ml inj IV ONE (23:55)
[2019-09-16] MEDS ORDERED: diphenhydrAMINE 50 mg/ml inj IV ONE (23:55)
[2019-09-16] MEDS ORDERED: metoclopramide 5 mg/ml inj IV ONE (23:55)
[2019-09-16] MEDS ORDERED: ONDA8TAB6 PO (23:56)
[2019-09-16] MEDS ORDERED: PROM25SU46 RC (23:56)
== END 2019-09-17 00:27 | disposition home or self-care (01) ==
LOC: ER 23:40
DX: R11.15 Cyclical vomiting syndrome unrelated to migraine (principal); Z87.442 Personal history of urinary calculi; Z87.440 Personal history of urinary (tract) infections; Z88.1 Allergy status to other antibiotic agents; Z88.8 Allergy status to other drugs, medicaments and biological substances; Z79.899 Other long term (current) drug therapy
CPT/HCPCS: 96374; 96375; 99284; J1200; J2405; J2765; J7030

== ENCOUNTER 2020-04-04 01:33 | Emergency (ER) | payer MEDICAID ==
[~2020-04-04] VITALS: Ht 165.1 cm; Wt 57.2 kg
[~2020-04-04 01:33] MED LIST changes: -PROM25SU46 RC; +PROM25SU9 RC
[2020-04-04 01:39] VITALS: BP 111/61
[2020-04-04] MEDS ORDERED: ondansetron 4mg rapidly disintigrating tab PO ONE (01:55)
[2020-04-04] MEDS ORDERED: metoclopramide 5 mg/ml inj IM ONE (01:55)
[2020-04-04] MEDS ORDERED: diphenhydrAMINE 50 mg/ml inj IM ONE (01:55)
--- NOTE | 2020-04-04 02:10 | NUR ---
PT UP OUT OF BED IN HALLWAY ASKING STAFF IF SHE CAN LEAVE ADVISED PT THAT SHE NEEDD TO STAY IN HER ROOM AND WAIT TILL THE MEDICATION TAKES EFFECT TO SEE IF IT CAN JELP HER NAUSEA . PT RETURNED TO HER ROOM as requested
--- NOTE | 2020-04-04 02:15 | NUR ---
pt back in hallway asking for md . md educated patient that she needs to stay in her room and give the medication some time to take effect . pt verbalized she would like to leave . Md mathis once again educates patietn that she needs to give the medication time to take effect . pt returnedto her room .
--- NOTE | 2020-04-04 02:22 | NUR ---
pt up out of bed . walks out to hallway and runs down hallway to lobby against medical advice md and charged nurse aware
== END 2020-04-04 02:27 | disposition left against medical advice (07) ==
LOC: ER 01:34
DX: R11.15 Cyclical vomiting syndrome unrelated to migraine (principal); R11.2 Nausea with vomiting, unspecified; F12.90 Cannabis use, unspecified, uncomplicated; Z87.442 Personal history of urinary calculi; Z87.440 Personal history of urinary (tract) infections; Z98.890 Other specified postprocedural states; Z88.1 Allergy status to other antibiotic agents; Z88.8 Allergy status to other drugs, medicaments and biological substances; Z79.899 Other long term (current) drug therapy
CPT/HCPCS: 96372; 99284; J1200; J2765

== ENCOUNTER 2020-07-09 21:02 | Emergency (ER) | payer MEDICAID ==
[~2020-07-09] VITALS: Ht 165.1 cm; Wt 56.8 kg
[2020-07-09] MEDS ORDERED: metoclopramide 5 mg/ml inj IV ONE (21:25)
[2020-07-09] MEDS ORDERED: ondansetron/PF 4mg/2ml inj IV ONE (21:25)
[2020-07-09] MEDS ORDERED: diphenhydrAMINE 50 mg/ml inj IV ONE (21:25)
[2020-07-09] MEDS ORDERED: normal saline 1000ML IV soln IVB ONE (21:25)
[2020-07-09] MEDS ORDERED: ketorolac tromethamine 15mg/ml inj. IV ONE (21:30)
[2020-07-09 21:37] LABS: BASOPHILS # (AUTO) 0.1 X10'3 (0-0.2); EOSINOPHILS % (AUTO) 0.3 % (0-6); HEMATOCRIT 41.4 % (35.0-45.0); HEMOGLOBIN 13.9 g/dl (12.0-16.0); LYMPHOCYTES # (AUTO) 1.6 X10'3 (1.1-4.8); LYMPHOCYTES % (AUTO) 13.3 % (21-51); MEAN CORPUSCULAR HEMOGLOBIN 29.9 PG (27.0-31.0); MEAN CORPUSCULAR HGB CONC 33.6 g/dL (33.0-36.5); MEAN CORPUSCULAR VOLUME 89.1 FL (78-98); MEAN PLATELET VOLUME 7.9 FL (7.4-10.4); MONOCYTES # (AUTO) 0.9 X10'3 (0-0.9); MONOCYTES % (AUTO) 7.1 % (2-12); NEUTROPHILS # (AUTO) 9.6 X10'3 (1.8-7.7); NEUTROPHILS % (AUTO) 78.3 % (42-75); PLATELET COUNT 216 X10'3 (140-440); RED BLOOD COUNT 4.65 X10'6 (4.20-5.60); RED CELL DISTRIBUTION WIDTH 13.7 % (11.5-14.5); WHITE BLOOD COUNT 12.3 X10'3 (4.5-11.0)
[2020-07-09 21:40] LABS: ALBUMIN 4.5 G/DL (3.4-5.0); ANION GAP 11 (8-16); BLOOD UREA NITROGEN 15 MG/DL (7-18); BUN/CREATININE RATIO 16.5 (6.6-38.0); CALCIUM 9.4 MG/DL (8.5-10.1); CHLORIDE 104 MMOL/L (99-107); CREATININE 0.91 MG/DL (0.40-0.90); GLUCOSE 132 MG/DL (70-104); POTASSIUM 3.9 MMOL/L (3.5-5.1); SODIUM 139 MMOL/L (135-145); TOTAL CARBON DIOXIDE 24.5 MMOL/L (24-32); eGFR 68 ML/MIN
[2020-07-09] MEDS ORDERED: proCHLORperazine 10 MG/2 ml inj IV ONE (21:45)
[2020-07-09] MEDS ORDERED: ONDA4TAB6 PO (23:12)
[2020-07-09] MEDS ORDERED: REG10L PO (23:12)
[2020-07-09 23:29] VITALS: BP 111/61
== END 2020-07-09 23:33 | disposition home or self-care (01) ==
LOC: ER 21:03
DX: R11.15 Cyclical vomiting syndrome unrelated to migraine (principal); F12.90 Cannabis use, unspecified, uncomplicated; Z87.440 Personal history of urinary (tract) infections; Z87.442 Personal history of urinary calculi; Z98.82 Breast implant status; Z88.2 Allergy status to sulfonamides; Z91.041 Radiographic dye allergy status; Z88.8 Allergy status to other drugs, medicaments and biological substances; Z79.899 Other long term (current) drug therapy
CPT/HCPCS: 36415; 76700; 80048; 85025; 93005; 96361; 96374; 96375; 99285; J1200; J2405; J2765; J7030

== ENCOUNTER 2020-08-25 06:18 | Emergency (ER) | payer MEDICAID ==
[~2020-08-25] VITALS: Ht 165.1 cm; Wt 56.8 kg
[~2020-08-25 06:18] MED LIST changes: +REG10L PO
[2020-08-25] MEDS ORDERED: metoclopramide 5 mg/ml inj IV ONE (06:30)
[2020-08-25] MEDS ORDERED: diphenhydrAMINE 50 mg/ml inj IV ONE (06:30)
[2020-08-25] MEDS ORDERED: normal saline 1000ml 1,000 ML IV ONE (06:30)
[2020-08-25] MEDS ORDERED: ondansetron/PF 4mg/2ml inj IV ONE (06:45)
--- NOTE | 2020-08-25 06:51 | NUR ---
patient complaining of nausea/vomiting but dry heaving at this time. Patient medicated with 1L NS, 10 mg Reglan, 25 mg Benadryl, and 4 mg zofran. Patient complaining she is still nauseous, but asked for ice chips. RN stated no due to vomiting, but patient begged. RN gave ice chips and patietn tolerating well but complaining she needs more Zofran. aware.
--- NOTE | 2020-08-25 06:59 | NUR ---
Patient stopped environmental services and asked for additional cup of ice chips.
[2020-08-25 07:02] LABS: ALBUMIN 4.1 G/DL (3.4-5.0); ANION GAP 11 (8-16); BLOOD UREA NITROGEN 11 MG/DL (7-18); BUN/CREATININE RATIO 16.4 (6.6-38.0); CALCIUM 9.3 MG/DL (8.5-10.1); CHLORIDE 108 MMOL/L (99-107); CREATININE 0.67 MG/DL (0.40-0.90); GLUCOSE 138 MG/DL (70-104); SODIUM 142 MMOL/L (135-145); TOTAL CARBON DIOXIDE 23.3 MMOL/L (24-32); eGFR > 90 ML/MIN
[2020-08-25 07:03] LABS: POTASSIUM 4.6 MMOL/L (3.5-5.1)
[2020-08-25 07:22] VITALS: BP 112/78
== END 2020-08-25 07:24 | disposition home or self-care (01) ==
LOC: ER 06:18
DX: R11.15 Cyclical vomiting syndrome unrelated to migraine (principal); R11.2 Nausea with vomiting, unspecified; F12.90 Cannabis use, unspecified, uncomplicated; Z87.442 Personal history of urinary calculi; Z87.440 Personal history of urinary (tract) infections; Z98.890 Other specified postprocedural states; Z88.1 Allergy status to other antibiotic agents; Z88.8 Allergy status to other drugs, medicaments and biological substances; Z79.899 Other long term (current) drug therapy
CPT/HCPCS: 36415; 80048; 96361; 96374; 96375; 99284; J1200; J2405; J2765; J7030

== ENCOUNTER 2021-01-03 06:33 | Emergency (ER) | payer MEDICAID ==
[~2021-01-03] VITALS: Ht 165.1 cm; Wt 59.9 kg
[2021-01-03] MEDS ORDERED: normal saline 1000ML IV soln IVB ONE ×2 (06:50)
[2021-01-03] MEDS ORDERED: diphenhydrAMINE 50 mg/ml inj IV ONE (06:50)
[2021-01-03] MEDS ORDERED: metoclopramide 5 mg/ml inj IV ONE (06:50)
[2021-01-03] MEDS ORDERED: ondansetron/PF 4mg/2ml inj IV ONE (07:15)
[2021-01-03 07:37] LABS: BASOPHILS % (AUTO) 0.3 % (0-1); EOSINOPHILS % (AUTO) 0.3 % (0-6); HEMATOCRIT 42.8 % (35.0-45.0); HEMOGLOBIN 14.5 g/dl (12.0-16.0); LYMPHOCYTES # (AUTO) 2.3 X10'3 (1.1-4.8); LYMPHOCYTES % (AUTO) 17.3 % (21-51); MEAN CORPUSCULAR HEMOGLOBIN 30.1 PG (27.0-31.0); MEAN CORPUSCULAR HGB CONC 33.9 g/dL (33.0-36.5); MEAN CORPUSCULAR VOLUME 88.9 FL (78-98); MEAN PLATELET VOLUME 7.9 FL (7.4-10.4); MONOCYTES # (AUTO) 0.8 X10'3 (0-0.9); MONOCYTES % (AUTO) 5.9 % (2-12); NEUTROPHILS # (AUTO) 10.1 X10'3 (1.8-7.7); NEUTROPHILS % (AUTO) 76.2 % (42-75); PLATELET COUNT 298 X10'3 (140-440); RED BLOOD COUNT 4.82 X10'6 (4.20-5.60); RED CELL DISTRIBUTION WIDTH 13.1 % (11.5-14.5); WHITE BLOOD COUNT 13.3 X10'3 (4.5-11.0)
[2021-01-03 07:40] VITALS: BP 127/72
[2021-01-03 07:51] LABS: ALANINE AMINOTRANSFERASE 17 U/L (12-78); ALBUMIN 4.1 G/DL (3.4-5.0); ALBUMIN/GLOBULIN RATIO 1.1 (1.1-1.5); ALKALINE PHOSPHATASE 73 IU/L (46-116); ASPARTATE AMINO TRANSFERASE 13 U/L (10-37); BILIRUBIN,TOTAL 0.4 MG/DL (0.1-1.0); BLOOD UREA NITROGEN 12 MG/DL (7-18); BUN/CREATININE RATIO 16.4 (6.6-38.0); CALCIUM 8.9 MG/DL (8.5-10.1); CREATININE 0.73 MG/DL (0.40-0.90); GLUCOSE 134 MG/DL (70-104); LIPASE 57 U/L (73-393); TOTAL CARBON DIOXIDE 22.6 MMOL/L (24-32); TOTAL PROTEIN 7.7 G/DL (6.4-8.2); eGFR 88 ML/MIN
[2021-01-03 08:07] LABS: ANION GAP 14 (8-16); CHLORIDE 107 MMOL/L (99-107); POTASSIUM 3.7 MMOL/L (3.5-5.1); SODIUM 144 MMOL/L (135-145)
== END 2021-01-03 07:37 | disposition home or self-care (01) ==
LOC: ER 06:34
DX: R11.15 Cyclical vomiting syndrome unrelated to migraine (principal); F12.90 Cannabis use, unspecified, uncomplicated; Z87.442 Personal history of urinary calculi; Z79.899 Other long term (current) drug therapy; Z88.1 Allergy status to other antibiotic agents; Z88.5 Allergy status to narcotic agent
CPT/HCPCS: 36415; 80053; 83690; 85025; 96374; 96375; 99284; J1200; J2405; J2765; J7030

== ENCOUNTER 2025-03-13 02:57 | Emergency (ER) | payer MEDICAID ==
[~2025-03-13] VITALS: Ht 165.1 cm; Wt 90.0 kg
[~2025-03-13 02:57] MED LIST changes: +ONDA-243 PO; -ONDA4TAB12 PO
[2025-03-13 03:17] LABS: LEUKOCYTE ESTERASE ,URINE MODERATE (Neg); NITRITES, URINE NEGATIVE (Neg); OCCULT BLOOD,URINE NEGATIVE (Neg)
[2025-03-13 03:19] LABS: URINE HCG NEGATIVE (NEG)
[2025-03-13 03:25] LABS: UA COLLECTION TYPE NON-SPECIFIED
[2025-03-13 03:26] LABS: SQUAMOUS EPITHELIAL CELL,UR MANY /LPF (FEW)
[2025-03-13] MEDS: normal saline 1000ml 1,000 ML IV ONE (04:14)
--- NOTE | 2025-03-13 04:17 | Physician Documentation ---
History of Present Illness ~ Chief Complaint: Vomiting Stated Complaint: N/V Time Seen by MD: 04:15 Primary Medical Doctor: [facility] HPI 44-year-old female, history of cyclic vomiting related to cannabis hyperemesis, who presents with nausea and vomiting. She tells me that in the past she had cyclic vomiting when she is marijuana, but has stopped using marijuana. However she did use it the other day in the setting of a family member who . For the past 2 days she has had uncontrolled nausea and vomiting. She reports some abdominal cramping but no pain. No fevers, chills, diarrhea, abdominal pain, or other concerns. Her only request is for nausea medicine to help stop the vomiting. Medication Reconciliation Allergies: Coded Allergies: bacitracin (Verified Allergy, Unknown, 03/13/25) ceftriaxone (Verified Allergy, Unknown, 03/13/25) haloperidol (Verified Allergy, Unknown, ANXIOUS, 03/13/25) iodine (Verified Allergy, Unknown, 03/13/25) lorazepam (Verified Allergy, Unknown, ANXIOUS, 03/13/25) neomycin (Verified Allergy, Unknown, 03/13/25) polymyxin B (Verified Allergy, Unknown, 07/25/19) Scheduled Esomeprazole Magnesium (Nexium), 1 CAP PO DAILY Famotidine* (Pepcid*), 20 MG PO BID Metoclopramide Hcl (Reglan), 10 ML PO BID Metoclopramide Hcl* (Metoclopramide Hcl*), 1 TAB PO Q6H Olanzapine (Zyprexa), 1 TAB PO HS Ondansetron (Zofran Odt), 1 TABLET PO Q8H Ondansetron Hcl (Zofran), 1 TAB PO Q8H Ondansetron Hcl (Zofran), 1 TAB PO Q8H Ondansetron Hcl (Zofran), 1 TAB PO Q6H Ondansetron Hcl (Zofran), 1 TAB PO Q8H Ondansetron Hcl (Zofran), 1 TAB PO Q8H Ondansetron Hcl (Zofran), 1 TAB PO Q8H Ondansetron Hcl (Zofran), 1 TAB PO Q8H Ondansetron Hcl (Zofran), 1 TAB PO Q12H PRN Promethazine Hcl (Promethegan), 25 MG RC Q6H PRN N/V Promethazine Hcl (Promethegan), 25 MG RC Q6H PRN N/V Scheduled PRN ONDANSETRON ODT 4mg tablet (Ondansetron Odt), 1 TABLET PO Q6H PRN PRN for nausea/vomiting ONDANSETRON ODT 4mg tablet (Ondansetron Odt), 1 TAB PO Q6H PRN PRN for nausea/vomiting Ondansetron Hcl (Ondansetron Hcl), 4 MG PO Q4H PRN for nausea/vomiting Ondansetron Hcl (Zofran), 1 TAB PO Q6H PRN for nausea/vomiting Ondansetron Hcl (Zofran), 8 MG PO Q8HPRN PRN for nausea/vomiting Prochlorperazine Maleate (Compazine), 25 MG PO TID PRN PRN for nausea/vomiting Past Medical History Past Medical History: *GI/HEPATOBILIARY*, Kidney Stones, UTI Past Surgical History: other Other Past Surgical History: Breast augmentation, DNC Alcohol Use: None Drug Use: marijuana Lives with: Family Lives In: Home Occupation: employed Review of Systems Constitutional: Denies: fever Gastrointestinal: Reports: nausea, vomiting; Denies: abdominal pain, diarrhea Physical Exam Vital Signs: Temperature: 97.0, Heart Rate: 95, Respiratory Rate: 18, BP: 122/80, Pulse Oximetry: 98, Weight: 90.000 Oxygen Flow Rate: 0 Physical Exam General: This is a pleasant and nontoxic appearing young female, not in distress HEENT: Atraumatic, oropharynx appears dry Heart: Mild tachycardic, appears regular Lungs: normal work of breathing, normal oxygen saturation on room air Abdomen: Soft, nondistended, nontender all quadrants Neuro: Alert and oriented Psychiatric: Calm and cooperative with exam Progress Results/Orders Results/Orders Completed Orders - LUCIO SANTIAGO MD Hcg, Ur Ql (03/13/25 03:05) Cbc/Diff (03/13/25 03:05) BMP (03/13/25 03:05) Lipase (03/13/25 03:05) CMP (03/13/25 03:05) Ua W/Microscopic, Cult If Ind (03/13/25 03:13) Prochlorperazine Inj (Compazine Inj) (03/13/25 04:10) Normal Saline 1000ml (0.9% Sodium Chlori (03/13/25 04:10) Diphenhydramine Inj (Benadryl Inj.) (03/13/25 04:10) Metoclopramide Inj (Reglan Inj) (03/13/25 04:25) Medications Received in ER Medications (Trade) Dose Ordered Sig/Kelby Route PRN Reason Start Time Stop Time Status Last Admin Dose Admin (Compazine inj) 10 mg ONCE ONCE IV 03/13/25 04:10 03/13/25 04:12 DC 03/13/25 04:14 10 MG Sodium Chloride 1,000 ml @ 1,000 mls/hr ONCE ONCE IV 03/13/25 04:10 03/13/25 04:40 DC 03/13/25 04:14 1,000 MLS/HR (Reglan inj) 5 mg ONCE ONCE IV 03/13/25 04:25 03/13/25 04:27 DC 03/13/25 04:29 5 MG Vital Signs 03/13/25 03/13/25 03:01 04:37 Temp 97.0 98.1 Pulse 95 70 Resp 18 16 B/P (MAP) 122/80 126/80 Pulse Ox 98 99 O2 Flow Rate 0 Laboratory Tests Test 03/13/25 03:13 03/13/25 04:25 Urine Specimen Description Non-specified Urine Color Yellow Urine Clarity Slightly cloudy Urine pH 6.0 Urine Specific [place] 1.010 Urine Protein Negative Urine Glucose (UA) Negative Urine Ketones Negative Urine Occult Blood Negative Urine Nitrite Negative Urine Bilirubin Negative Urine Urobilinogen 1.0 Urine Leukocyte Esterase Moderate H Urine RBC 0-2 Urine WBC 30-50 H Urine Squamous Epithelial Cells Many Urine Bacteria 3+ Urine Culture Indicated Rejected for culture Volume Urine Centrifuged 10 ml Urine HCG, Qualitative Negative Urine Comment White Blood Count 8.2 Red Blood Count 4.34 Hemoglobin 12.8 Hematocrit 37.3 Mean Corpuscular Volume 86.0 Mean Corpuscular Hemoglobin 29.5 Mean Corpuscular Hemoglobin Concent 34.3 Red Cell Distribution Width 12.8 Platelet Count 224 Mean Platelet Volume 7.9 Neutrophils (%) (Auto) 69.6 Lymphocytes (%) (Auto) 21.5 Monocytes (%) (Auto) 7.2 Eosinophils (%) (Auto) 1.3 Basophils (%) (Auto) 0.4 Neutrophils # (Auto) 5.7 Lymphocytes # (Auto) 1.8 Monocytes # (Auto) 0.6 Eosinophils # (Auto) 0.1 Basophils # (Auto) 0.0 CBC Comment Sodium Level 143 Potassium Level 4.1 Chloride Level 108 H Carbon Dioxide Level 25.5 Anion Gap 10 Blood Urea Nitrogen 12 Creatinine 0.79 Estimated GFR/1.73 m2 79 BUN/Creatinine Ratio 15.2 Glucose Level 111 H Calcium Level 8.1 L Total Bilirubin 0.6 Aspartate Amino Transf (AST/SGOT) 22 Alanine Aminotransferase (ALT/SGPT) 21 Alkaline Phosphatase 71 Total Protein 6.7 Albumin 3.3 L Globulin 3.4 Albumin/Globulin Ratio 1.0 L Lipase 18 Chemistry Comments Medical Decision Making Additional Comments The patient presents with nausea and vomiting. Per her history and exam this all appears consistent with cyclic vomiting related to cannabis use. She has a benign abdominal exam and is afebrile. She was given symptomatic treatment with good improvement. She then requested to go home. She will be discharged with nausea medicine and return precautions. Departure Time of Disposition: 04:32 Disposition: 01 HOME / SELF CARE / HOMELESS Impression: Primary Impression: Cannabis hyperemesis syndrome concurrent with and due to cannabis abuse Condition: Improved Discharge Instructions: Nausea and Vomiting, Adult Referrals: NO PRIMARY CARE PROVIDER (PCP) Prescriptions ONDANSETRON ODT 4mg tablet (ONDANSETRON ODT) 4 Mg Tab.rapdis 1 TAB PO Q6H PRN PRN for nausea/vomiting for 4 Days, #16 TAB 0 Refills Prov: LUCIO SANTIAGO MD 03/13/25 Metoclopramide Hcl* (Metoclopramide Hcl*) 10 Mg Tablet 1 TAB PO Q6H for Nausea for 10 Days, #15 TAB Prov: LUCIO SANTIAGO MD 03/13/25 Education Educated: Patient Educated regarding: diagnosis, treatment, need for follow up Signature Scribe Signature: dallin Attestation: LUCIO Sullivan MD Mar 13, 2025 04:17
[2025-03-13] MEDS: metoclopramide 5 mg/ml inj IV ONE (04:29)
[2025-03-13] MEDS ORDERED: METO10TA3 PO (04:34)
[2025-03-13] MEDS ORDERED: ONDA-243 PO (04:34)
[2025-03-13 04:37] VITALS: BP 126/80; PULSE 70; RESP 16; TEMP 98.1; O2SAT 99
[2025-03-13 04:51] LABS: MEAN PLATELET VOLUME 7.9 FL (7.4-10.4); RED CELL DISTRIBUTION WIDTH 12.8 % (11.5-14.5)
[2025-03-13 05:09] LABS: CREATININE 0.79 MG/DL (0.40-0.90); TOTAL CARBON DIOXIDE 25.5 MMOL/L (24-32); eCRCL 82 ML/MIN; eGFR 79 ML/MIN
== END 2025-03-13 04:40 | disposition home or self-care (01) ==
LOC: ER 02:57
DX: F12.11 Cannabis abuse, in remission (principal); R11.10 Vomiting, unspecified; Z87.442 Personal history of urinary calculi; Z88.1 Allergy status to other antibiotic agents; Z88.8 Allergy status to other drugs, medicaments and biological substances; Z87.440 Personal history of urinary (tract) infections; Z79.899 Other long term (current) drug therapy
CPT/HCPCS: 36415; 80053; 81001; 81025; 83690; 85025; 96361; 96374; 96375; 99284; J0780; J2765; J7030

== ENCOUNTER 2025-03-27 03:19 | Emergency (ER) | payer MEDICAID ==
[~2025-03-27] VITALS: Ht 165.1 cm; Wt 91.0 kg
[2025-03-27] MEDS ORDERED: haloperidol lactate 5mg/ml inj IVH ONE (03:20)
[2025-03-27 03:25] VITALS: TEMP 98
--- NOTE | 2025-03-27 03:26 | Physician Documentation ---
History of Present Illness General Chief Complaint: Nausea Stated Complaint: N/V Time Seen by MD: 03:20 Primary Medical Doctor: [facility] History of Present Illness Initial Comments This is a 44-year-old female with a daily marijuana smoking, an prior history of cannabinoid hyperemesis presents for evaluation of intractable nausea or vomiting similar to prior cannabinoid hyperemesis. She attempted to treat it with the girlfriend without success. She eventually ended up calling the ambulance because at this point she feels only IV medications with the help her. Denies any other symptoms. Medication Reconciliation Allergies: Coded Allergies: bacitracin (Verified Allergy, Unknown, 03/13/25) ceftriaxone (Verified Allergy, Unknown, 03/13/25) haloperidol (Verified Allergy, Unknown, ANXIOUS, 03/13/25) iodine (Verified Allergy, Unknown, 03/13/25) lorazepam (Verified Allergy, Unknown, ANXIOUS, 03/13/25) neomycin (Verified Allergy, Unknown, 03/13/25) polymyxin B (Verified Allergy, Unknown, 07/25/19) Scheduled Capsaicin 60GM Cream* (Zostrix Cream*), 1 APPLIC TOP Q12H Esomeprazole Magnesium (Nexium), 1 CAP PO DAILY Famotidine* (Pepcid*), 20 MG PO BID Metoclopramide Hcl (Reglan), 10 ML PO BID Olanzapine (Zyprexa), 1 TAB PO HS Ondansetron (Zofran Odt), 1 TABLET PO Q8H Ondansetron Hcl (Zofran), 1 TAB PO Q8H Ondansetron Hcl (Zofran), 1 TAB PO Q8H Ondansetron Hcl (Zofran), 1 TAB PO Q6H Ondansetron Hcl (Zofran), 1 TAB PO Q8H Ondansetron Hcl (Zofran), 1 TAB PO Q8H Ondansetron Hcl (Zofran), 1 TAB PO Q8H Ondansetron Hcl (Zofran), 1 TAB PO Q8H Ondansetron Hcl (Zofran), 1 TAB PO Q12H PRN Prochlorperazine Maleate (Compazine), 1 TAB PO Q6H Promethazine Hcl (Promethegan), 25 MG RC Q6H PRN N/V Promethazine Hcl (Promethegan), 25 MG RC Q6H PRN N/V Scheduled PRN ONDANSETRON ODT 4mg tablet (Ondansetron Odt), 1 TABLET PO Q6H PRN PRN for nausea/vomiting ONDANSETRON ODT 4mg tablet (Ondansetron Odt), 1 TAB PO Q6H PRN PRN for nausea/vomiting Ondansetron Hcl (Ondansetron Hcl), 4 MG PO Q4H PRN for nausea/vomiting Ondansetron Hcl (Zofran), 1 TAB PO Q6H PRN for nausea/vomiting Ondansetron Hcl (Zofran), 8 MG PO Q8HPRN PRN for nausea/vomiting Prochlorperazine Maleate (Compazine), 25 MG PO TID PRN PRN for nausea/vomiting Discontinued Medications Metoclopramide Hcl* (Metoclopramide Hcl*), 1 TAB PO Q6H Discontinued Reason: Auto Discontinued Past Medical History Past Medical History: *GI/HEPATOBILIARY*, Kidney Stones, UTI Past Surgical History: other Other Past Surgical History: Breast augmentation, DNC Smoking: Cigarettes Alcohol Use: None Drug Use: marijuana Lives with: Family Lives In: Home Occupation: employed Review of Systems ROS 10 point review of systems was performed and unless noted above in HPI is negative for acute process/complaint. Physical Exam Physical Exam Physical Exam GENERAL: Awake, alert, oriented, GCS 15, no apparent distress, non-toxic appearing, answers questions, follows commands appropriately. Examined on EMS [facility] HEENT: Atraumatic, normocephalic, pupils equal, extraocular muscles intact, sclerae anicteric, mucus membranes very dry, oropharynx is clear, no stridor. NECK: supple, full active range of motion, trachea midline, no thyromegaly, no lymphadenopathy, no JVD. CARDIOVASCULAR: regular rate/rhythm, no murmurs/gallops/rubs, Pulses are 2+ in all extremities and symmetric. Capillary refill less than 2 seconds. PULMONARY: Nonlabored, good air movement ,no respiratory distress, speaking in full sentences, clear to auscultation bilaterally, no wheezing, no ronchi, no rales, no accessory muscle use. GASTROINTESTINAL: Soft, non-tender, non-distended, normal active bowel sounds, no organomegaly, no pulsatile masses, no CVA tenderness. NEUROLOGIC: Lucid with normal mental status. Normal facial symmetry. Moves all extremities symmetrically and with purpose. No truncal ataxia. Speech is fluid without evidence of dysarthria or aphasia, no focal deficits appreciated. MUSCULOSKELETAL: There is full range of motion of all extremities. There is no joint pain or joint swelling or joint erythema. There is no muscle pain or tenderness or swelling. EXTREMITIES: warm, well-perfused, no cyanosis, no clubbing, no edema, no acute deformities. Skin: warm, dry, no rashes or lesions, no jaundice, no petechiae orpurpura. No ecchymosis. PSYCHIATRIC: Normal affect, normal insight, normal concentration. Focused exam: [] Progress Results/Orders Results/Orders Orders - BELLA GÓMEZ DO Hcg Serum Ql (03/27/25 04:02) Completed Orders - BELLA GÓMEZ DO Electrocardiogram (03/27/25 ) Ondansetron Inj. (Zofran 4mg/2ml Vial) (03/27/25 03:20) Haloperidol Lact. (Haldol) (03/27/25 03:20) Normal Saline 1000ml (0.9% Sodium Chlori (03/27/25 03:20) Cbc/Diff (03/27/25 03:20) Lipase (03/27/25 03:20) MG (03/27/25 03:20) Hs Troponin I W Calculations (03/27/25 03:20) CMP (03/27/25 03:20) Diphenhydramine Inj (Benadryl Inj.) (03/27/25 04:00) Prochlorperazine Inj (Compazine Inj) (03/27/25 04:10) Metoclopramide Inj (Reglan Inj) (03/27/25 04:10) Medications Received in ER Medications (Trade) Dose Ordered Sig/Kelby Route PRN Reason Start Time Stop Time Status Last Admin Dose Admin (Zofran 4mg/2ml vial) 8 mg ONCE ONCE IV 03/27/25 03:20 03/27/25 03:30 DC 03/27/25 03:47 8 MG Sodium Chloride 1,000 ml @ 1,000 mls/hr ONCE ONCE IV 03/27/25 03:20 03/27/25 04:19 DC 03/27/25 03:49 1,000 MLS/HR (Benadryl inj.) 25 mg ONCE ONCE IV 03/27/25 04:00 03/27/25 04:01 DC 03/27/25 04:03 25 MG (Compazine inj) 10 mg ONCE ONCE IV 03/27/25 04:10 03/27/25 04:20 DC 03/27/25 04:23 10 MG (Reglan inj) 10 mg ONCE ONCE IV 03/27/25 04:10 03/27/25 04:20 DC 03/27/25 04:25 10 MG Vital Signs 03/27/25 03/27/25 03:25 04:34 Temp 98.0 Pulse 94 85 Resp 18 16 B/P (MAP) 144/86 128/66 (86) Pulse Ox 99 98 O2 Flow Rate 0 Laboratory Tests Test 03/27/25 03:50 White Blood Count 8.7 Red Blood Count 4.72 Hemoglobin 13.9 Hematocrit 40.2 Mean Corpuscular Volume 85.2 Mean Corpuscular Hemoglobin 29.5 Mean Corpuscular Hemoglobin Concent 34.6 Red Cell Distribution Width 12.8 Platelet Count 223 Mean Platelet Volume 7.5 Neutrophils (%) (Auto) 72.9 Lymphocytes (%) (Auto) 19.1 L Monocytes (%) (Auto) 6.7 Eosinophils (%) (Auto) 1.0 Basophils (%) (Auto) 0.3 Neutrophils # (Auto) 6.4 Lymphocytes # (Auto) 1.7 Monocytes # (Auto) 0.6 Eosinophils # (Auto) 0.1 Basophils # (Auto) 0.0 CBC Comment Sodium Level 143 Potassium Level 4.1 Chloride Level 109 H Carbon Dioxide Level 26.7 Anion Gap 7 L Blood Urea Nitrogen 14 Creatinine 0.89 Estimated GFR/1.73 m2 69 BUN/Creatinine Ratio 15.7 Glucose Level 127 H Calcium Level 9.1 Magnesium Level 2.0 Total Bilirubin 0.5 Aspartate Amino Transf (AST/SGOT) 16 Alanine Aminotransferase (ALT/SGPT) 22 Alkaline Phosphatase 75 Troponin I High Sensitivity 4 Total Protein 7.6 Albumin 4.0 Globulin 3.6 Albumin/Globulin Ratio 1.1 Lipase 22 Chemistry Comments EKG/XRAY/CT/US/VASC/MRI EKG : Additional Comment EKG was obtained and interpreted by myself showing sinus rhythm, rate of 80, normal OK interval, narrow QRS, no QT prolongation, left axis. No STEMI. Medical Decision Making Findings Facility Status: ED Holds, [facility] process The plan was discussed with the patient, who demonstrates clear understanding of the plan and is in agreement with the plan unless otherwise noted in the chart. All questions have been answered, all concerns were addressed unless otherwise documented. I was available throughout their ED stay for frequent reassessment and questions. Differential Diagnoses (considered and possible or likely): [Cannabinoid hyperemesis, dehydration, electrolyte derangement, less likely small bowel obstruction, less likely preformed toxin ingestion, less likely viral gastroenteritis] ??Differential Diagnoses (considered and unlikely, not requiring evaluation currently): [Unlikely to represent a acute surgical pathology.] MDM Data Please see [facility] for the following: Independent Historians and external Records Review. Historian: [Patient] Independent Historians: ?[EMS, record review] Medication Management: [Reviewed medication list] Social History and determinants: [Reviewed] Please see the body of the note for the following: Any independent interpretations of ECG, imaging studies. All vitals signs/haemodynamics, ordered tests were independently reviewed and interpreted by myself. Nursing triage complaint and vitals reviewed, additional nursing notes were reviewed as available and I agree unless otherwise noted or documented in contra diction in the chart Vital Signs: Independently reviewed Labs: Independently interpreted Imaging: Independently interpreted Old Medical Records: Independently reviewed, see [facility] for relevant summary and information Pulse Oximetry: [100%] interpreted as [normal on room air] by me [Cob Sawyer: [Regular Rate, Regular rhythm, no ectopy, NSR] reviewed and interpreted by me] Additionally notably showing: [Hemodynamically stable. Laboratory studies are unremarkable, no significant electrolyte derangement. CBC is normal.] Tests considered but not ordered include: [Imaging does not appear to be necessary] Social Determinants of Health Impact: Patient was evaluated in [facility], or [facility] [place] access to healthcare due to below par ratio of patient to medical providers. [] Comorbid Conditions Impacting Present Evaluation and Care/Treatment: [History of cannabinoid hyperemesis] Management Discussions with other Healthcare Providers: [None] Treatment and Disposition Medication Management (Given or considered): [Fluids and antiemetics]. See EMR for details Consideration for Hospitalization/Escalation/Deescalation of Care: Admission for observation has been considered, [however the patient is able to tolerate p.o., their symptoms are controlled, they are able to rely on oral medications, and their chief complaint/diagnosis can be managed on outpatient basis.] ?ED Course:?[No clinical deterioration. Improved. Tolerating p.o..] ?Shared decision making:?[Patient is hemodynamically stable for discharge home with follow with their primary care provider. [ ] Specific and cautious return precautions provided and discussed with full understanding. Any incidental findings were also discussed and follow up recommendations given. [] All questions answered. Patient/family were able to verbalize back return precautions. Patient/family agree to plan. Copies of imaging and laboratory studies were provided.] Code status:?FULL Please see the full Electronic Medical Record for full details of nursing documentation, medications list, other records of complete past medical history and conditions, vital signs, laboratory studies, and any radiologic study interpretations by radiologists. Portions of this note were completed using Riidr dictation software and as a result there may exist minor errors in spelling. I have reviewed elements of past family and social history and agree as included in note. Departure Disposition: 01 HOME / SELF CARE / HOMELESS Impression: Primary Impression: Nausea and vomiting Additional Impression: Cannabinoid hyperemesis syndrome Condition: Improved Discharge Instructions: Cannabinoid Hyperemesis Syndrome, Nausea and Vomiting, Adult, [id number] Referrals: NO PRIMARY CARE PROVIDER (PCP) Prescriptions Capsaicin 60GM Cream* (Zostrix Cream*) 60 Gm Cream.gm. 1 APPLIC TOP Q12H for 30 Days, #60 GM Prov: BELLA GÓMEZ DO 03/27/25 Prochlorperazine Maleate (Compazine) 10 Mg Tablet 1 TAB PO Q6H for 7 Days, #28 TAB 0 Refills Prov: BELLA GÓMEZ DO 03/27/25 Education Educated: Patient Educated regarding: diagnosis, treatment, prognosis, need for follow up Signature Scribe Signature: No scribe Attestation: Date: Mar 27, 2025 Time: 03:25 This note accurately reflects clinical decisions, work performed by myself, DO DALIA Gomes NICHOLAS M DO Mar 27, 2025 03:25
[2025-03-27] MEDS: ondansetron/PF 4mg/2ml inj IV ONE (03:47)
[2025-03-27] MEDS: normal saline 1000ml 1,000 ML IV ONE (03:49)
--- NOTE | 2025-03-27 03:58 | ELECTROCARDIOGRAPH REPORT ---
[facility] [place] Test Date: 2025-03-27 Test Time: 03:55:33 Pat Name: LIVIER TOVAR Department: EMERGENCY ROOM Room: Gender: F Forensic Science Technician: THU : 1980 Requested By: BELLA GÓMEZ Order Number: [id number] Reading MD: Measurements Intervals [place] Rate: 80 P: 0 MD: 0 QRS: -49 QRSD: 94 T: 26 QT: 384 QTc: 443 Interpretive Statements Atrial fibrillation Left anterior fascicular block Consider anterior infarct Please click the below link to view image of tracing.
[2025-03-27 04:10] LABS: MEAN PLATELET VOLUME 7.5 FL (7.4-10.4); RED CELL DISTRIBUTION WIDTH 12.8 % (11.5-14.5)
[2025-03-27 04:23] LABS: CREATININE 0.89 MG/DL (0.40-0.90); TOTAL CARBON DIOXIDE 26.7 MMOL/L (24-32); eCRCL 73 ML/MIN; eGFR 69 ML/MIN
[2025-03-27] MEDS: metoclopramide 5 mg/ml inj IV ONE (04:25)
[2025-03-27] MEDS ORDERED: PROC-8 PO (04:36)
[2025-03-27] MEDS ORDERED: CAPS60CR6 TOP (04:36)
[2025-03-27 04:56] VITALS: BP 128/66; PULSE 88; RESP 16; O2SAT 96
== END 2025-03-27 04:58 | disposition home or self-care (01) ==
LOC: ER 03:19
DX: R11.16 Cannabis hyperemesis syndrome (principal); R11.2 Nausea with vomiting, unspecified; F17.200 Nicotine dependence, unspecified, uncomplicated; I48.91 Unspecified atrial fibrillation; Z87.440 Personal history of urinary (tract) infections; Z87.442 Personal history of urinary calculi; Z88.8 Allergy status to other drugs, medicaments and biological substances; Z88.1 Allergy status to other antibiotic agents; Z79.899 Other long term (current) drug therapy
CPT/HCPCS: 36415; 80053; 83690; 83735; 84484; 85025; 93005; 96361; 96374; 96375; 99284; J0780; J1200; J2405; J2765; J7030